=== PATIENT | male | born 1960 | race Caucasian/White ===

== ENCOUNTER 2017-03-23 20:19 | Emergency (ER) | payer OTHER ==
[~2017-03-23] VITALS: Ht 177.8 cm; Wt 68.0 kg
[2017-03-23 20:23] VITALS: BP 131/95; PULSE 82; RESP 16; TEMP 98.5; O2SAT 99
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
== END 2017-03-24 09:33 | disposition left against medical advice (07) ==
LOC: NEPD 20:19
DX: R45.851 Suicidal ideations (principal); F02.80 Dementia in other diseases classified elsewhere, unspecified severity, without behavioral disturbance, psychotic disturbance, mood disturbance, and anxiety; G30.9 Alzheimer's disease, unspecified; F32.9 Major depressive disorder, single episode, unspecified; I10 Essential (primary) hypertension; J44.9 Chronic obstructive pulmonary disease, unspecified; E11.9 Type 2 diabetes mellitus without complications; Z72.0 Tobacco use
CPT/HCPCS: 80307; 99283